=== PATIENT | female | born 1940 | race Caucasian/White ===

== ENCOUNTER 2023-09-17 16:02 | Observation (INO) ==
--- NOTE | 2023-09-17 16:47 | DR.DIZZY ---
HPI Time seen Time Seen by Provider: 09/17/23 16:41 PCP Primary Care Physician: Rafaela HPI Comment HPI Comment: was being evaluated for mini lumbar spine procedure when she was noted to have low blood pressure and weakness no c/o chest pain or sob has hx cad stents cva carotid stents she recenyly had echo which was reported as nl and had her lasix increased in the last several months and lost 30 + pounds Complaint Chief Complaint:: patient states she went to [facility] to be cleared for a back procedure, "Mild". She was found to be hypotensive with BP of 70/47. She decided to be evaluated at [facility]. Her only compaint of pain is chronic low back pain. She does complain of generalized weakness. COVID-19 Coronavirus risk:travel/contact w/high risk person: No Has patient experienced Coronavirus symptoms: No Source History Provided: Patient and Family Member Mode of Arrival Mode of Arrival: Wheelchair Timing Onset of Chief Complaint: 09/17/23 Context Stroke Symptoms: None PMH PMH Past Medical History: Yes Past Medical History: Coronary Artery Disease, CVA, Dyslipidemia, Hypertension and Renal Disease Past Surgical History: Yes Surgical History: Angioplasty/Stents, Appendectomy, Hysterectomy and Ortho Surgery Family History History of Family Medical Conditions: Yes Family Medical History: Coronary Artery Disease and Hypertension Social History Does patient currently use any type of tobacco product: No Have you used tobacco products in the last 12 months: No Type of Tobacco Use: None Does any household member use tobacco: No Alcohol Use: None Do you use any recreational Drugs:: No Lives With: Family Lives Where: Home Travel Risk Coronavirus risk:travel/contact w/high risk person: No Has patient experienced Coronavirus symptoms: No Infectious screening In the last 2 months have you had wt loss of >10#?: NO Have you had fever, night sweats or hemotysis?: No Have you traveled outside the country in the last 6 months?: No Isolation: Standard ROS Review of Systems All Other Systems: Reviewed and Negative PE Vital Signs Vitals: Vital Signs Temperature 97.7 F Pulse Rate 76 Pulse Rate 81 Pulse Rate 88 Pulse Rate 81 Pulse Rate 77 Pulse Rate 75 Pulse Rate 84 Pulse Rate 82 Pulse Rate 76 Pulse Rate 75 Pulse Rate 74 Pulse Rate 77 Pulse Rate 78 Respiratory Rate 14 Blood Pressure 136/63 Blood Pressure 134/64 Blood Pressure 116/56 Blood Pressure 116/56 Blood Pressure 104/58 Blood Pressure 108/60 Blood Pressure 116/58 Blood Pressure 112/56 Blood Pressure 107/59 Blood Pressure 118/56 O2 Sat by Pulse Oximetry 98 O2 Sat by Pulse Oximetry 97 O2 Sat by Pulse Oximetry 97 O2 Sat by Pulse Oximetry 96 O2 Sat by Pulse Oximetry 97 O2 Sat by Pulse Oximetry 97 O2 Sat by Pulse Oximetry 97 O2 Sat by Pulse Oximetry 98 O2 Sat by Pulse Oximetry 96 O2 Sat by Pulse Oximetry 99 O2 Sat by Pulse Oximetry 96 O2 Sat by Pulse Oximetry 97 O2 Sat by Pulse Oximetry 95 Head Head Exam: Normal Inspection Eyes Eye exam: Normal Appearance Neck Neck Exam: Normal Inspection Chest Chest Inspection: Normal Inspection Cardiovascular Cardiovascular Exam: Regular Rate Abdominal Exam Abdominal Exam: Normal Inspection and Normal Bowel Sounds Extremeties Extremities Exam: Normal Inspection and Full ROM Neurologic Cerebellar Function: Finger to Nose: Normal and Heel to Cm: Normal Skin Skin Exam: Warm and Dry COURSE Critical Care Notes Critical Diagnosis: bp 106/ sys ROR Labs Reviewed Laboratory Results Reviewed?: Yes 09/18/23 04:29 09/18/23 04:29 Laboratory: 09/17/23 17:46 Blood Blood Culture - Preliminary 09/17/23 17:40 Blood Blood Culture - Preliminary 09/17/23 18:14 Urine,Clean Catch Urine Culture - Final Escherichia Coli WBC 4.7 X10^3/uL (3.6-10.0) 09/17/23 16:40 RBC 3.21 X10^6/uL (3.5-5.4) L 09/17/23 16:40 Hgb 9.8 g/dL (12.0-16.0) L 09/17/23 16:40 Hct 29.6 % (36.0-47.0) L 09/17/23 16:40 MCV 92.1 fL (80.0-100.0) 09/17/23 16:40 MCH 30.6 pg (27.0-34.0) 09/17/23 16:40 MCHC 33.2 g/dL (33.0-35.0) 09/17/23 16:40 RDW 17.4 % (11.6-16.5) H 09/17/23 16:40 Plt Count 149 X10^3/uL (150.0-450.0) L 09/17/23 16:40 MPV 7.9 fL (7.4-11.0) 09/17/23 16:40 Neut % (Auto) 64.9 % (42.0-75.0) 09/17/23 16:40 Lymph % (Auto) 25.8 % (21.0-51.0) 09/17/23 16:40 [place] % (Auto) 8.1 % (0.0-13.0) 09/17/23 16:40 Eos % (Auto) 0.6 % (0.9-2.9) L 09/17/23 16:40 Baso % (Auto) 0.6 % (0.2-1.0) 09/17/23 16:40 Neut # (Auto) 3.0 x10^3/uL (2.2-4.8) 09/17/23 16:40 Lymph # (Auto) 1.2 X10^3/uL (1.3-2.9) L 09/17/23 16:40 [place] # (Auto) 0.4 x10^3/uL (0.3-0.8) 09/17/23 16:40 Eos # (Auto) 0.0 x10^3/uL (0.0-0.2) 09/17/23 16:40 Baso # (Auto) 0.0 X10^3/uL (0.0-0.1) 09/17/23 16:40 Absolute Nucleated RBC 0.1 /100WBC 09/17/23 16:40 D-Dimer 1.23 ug/ml (0.0-0.57) H 09/17/23 16:40 Sodium 141 mmol/L (136-145) 09/17/23 16:40 Corrected Sodium TNP 09/17/23 16:40 Potassium 3.7 mmol/L (3.5-5.1) 09/17/23 16:40 Chloride 101 mmol/L (98-107) 09/17/23 16:40 Carbon Dioxide 30.3 mmol/L (21-32) 09/17/23 16:40 BUN 75 mg/dL (7-18) H 09/17/23 16:40 Creatinine 2.51 mg/dL (0.55-1.02) H 09/17/23 16:40 Est GFR (MDRD) Af Amer 24 (>60) L 09/17/23 16:40 Est GFR (MDRD) Non-Af 20 (>60) L 09/17/23 16:40 Glucose 105 mg/dL (65-99) H 09/17/23 16:40 Calcium 6.7 mg/dL (8.5-10.1) L 09/17/23 16:40 Corrected Calcium 7.5 mg/dL (8.5-10.1) L 09/17/23 16:40 Total Bilirubin 0.50 mg/dL (0.2-1.0) 09/17/23 16:40 AST 21 Units/L (15-37) 09/17/23 16:40 ALT 13 Units/L (12-78) 09/17/23 16:40 Alkaline Phosphatase 71 Units/L (46-116) 09/17/23 16:40 Creatine Kinase 124 Units/L (26-192) 09/17/23 16:40 Troponin I High Sens 7.9 ng/L (4.0-60.0) 09/17/23 18:55 B-Natriuretic Peptide 87.5 pg/mL (0-79) H 09/17/23 16:40 Total Protein 7.5 g/dL (6.4-8.2) 09/17/23 16:40 Albumin 3.0 g/dL (3.4-5.0) L 09/17/23 16:40 Globulin 4.5 g/dL (2.5-4.5) 09/17/23 16:40 Albumin/Globulin Ratio 0.7 Ratio (1.1-2.1) L 09/17/23 16:40 Specimen Type Clean catch urine 09/17/23 18:14 Urine Color Yellow (YELLOW) 09/17/23 18:14 Urine Appearance Cloudy (CLEAR) 09/17/23 18:14 Urine pH 6.0 (5.0 - 8.0) 09/17/23 18:14 Ur Specific [place] 1.010 (1.000-1.030) 09/17/23 18:14 Urine Protein 2+ (NEGATIVE) 09/17/23 18:14 Urine Glucose (UA) Negative (NEGATIVE) 09/17/23 18:14 Urine Ketones Negative (NEGATIVE) 09/17/23 18:14 Urine Blood 3+ (NEGATIVE) 09/17/23 18:14 Urine Nitrite Negative (NEGATIVE) 09/17/23 18:14 Urine Bilirubin Negative (NEGATIVE) 09/17/23 18:14 Urine Urobilinogen Normal (NORMAL) 09/17/23 18:14 Ur Leukocyte Esterase 3+ (NEGATIVE) 09/17/23 18:14 Urine RBC 10-20 /HPF (0-3) A 09/17/23 18:14 Urine WBC Tntc /HPF (0-5) A 09/17/23 18:14 Ur Squamous Epith Cells Few /HPF (NEGATIVE) 09/17/23 18:14 Urine Bacteria 2+ /HPF (NEGATIVE) 09/17/23 18:14 Ur Culture Indicated? Yes/culture set up 09/17/23 18:14 SARS-CoV-2 (PCR) Negative (NEGATIVE) 09/17/23 16:39 Influenza Type A (PCR) Negative (NEGATIVE) 09/17/23 16:39 Influenza Type B (PCR) Negative (NEGATIVE) 09/17/23 16:39 RSV (PCR) Negative (NEGATIVE) 09/17/23 16:39 XRAY XRAY Interpreted by: Self X-ray Results: cardiomegaly cant ro lll infiltrate EKG Rate: 75 [place]: Normal (rbb ) Rhythm: NSR Opioid Opioid Risk Tool Age (Moises box if 16-45): No History of Preadolescent Sexual Abuse: No Total: 0 Total Score Risk Category: Low Risk Copyright: Donald STEPHENS predicting aberrant behaviors Discharge Plan Diagnosis Discharge Problem: General weakness, Exertional hypotension, Pneumonia, Acute UTI Discharge Plan Patient Disposition: 09 ADMITTED INPATIENT Condition: Stable Orders to Discharge Patient Discharge Orders: Discharge (Routine); Ordered 09/18/23 Ordered By: Catarino Cohen
[2023-09-17 16:54] LABS: BASOPHILS % (AUTO) 0.6 % (0.2-1.0); EOSINOPHILS % (AUTO) 0.6 % (0.9-2.9); HEMATOCRIT 29.6 % (36.0-47.0); HEMOGLOBIN 9.8 g/dL (12.0-16.0); LYMPHOCYTES # (AUTO) 1.2 X10^3/uL (1.3-2.9); LYMPHOCYTES % (AUTO) 25.8 % (21.0-51.0); MEAN CORPUSCULAR HEMOGLOBIN 30.6 pg (27.0-34.0); MEAN CORPUSCULAR HGB CONC 33.2 g/dL (33.0-35.0); MEAN CORPUSCULAR VOLUME 92.1 fL (80.0-100.0); MEAN PLATELET VOLUME 7.9 fL (7.4-11.0); MONOCYTES # (AUTO) 0.4 x10^3/uL (0.3-0.8); MONOCYTES % (AUTO) 8.1 % (0.0-13.0); NEUTROPHILS % (AUTO) 64.9 % (42.0-75.0); PLATELET COUNT 149 X10^3/uL (150.0-450.0); RED BLOOD COUNT 3.21 X10^6/uL (3.5-5.4); RED CELL DISTRIBUTION WIDTH 17.4 % (11.6-16.5); WHITE BLOOD COUNT 4.7 X10^3/uL (3.6-10.0)
--- NOTE | 2023-09-17 16:59 | EKG ---
Test Reason : weakness, hypotension Blood Pressure : */* mmHG Vent. Rate : 75 BPM Atrial Rate : 75 BPM P-R Int : 134 ms QRS Dur : 140 ms QT Int : 458 ms P-R-T Axes : 39 -45 9 degrees QTc Int : 511 ms Normal sinus rhythm Left axis deviation V paced Minimal voltage criteria for LVH, may be normal variant ( R in aVL ) Cannot rule out Anterior infarct , age undetermined Abnormal ECG No previous ECGs available Confirmed by Miguel Starkey MD ([id number]) on 09/18/2023 7:39:44 AM Referred By: Confirmed By: Miguel Starkey MD
[2023-09-17 17:05] LABS: ALANINE AMINOTRANSFERASE 13 Units/L (12-78); ALKALINE PHOSPHATASE 71 Units/L (46-116); ASPARTATE AMINO TRANSFERASE 21 Units/L (15-37); BLOOD UREA NITROGEN 75 mg/dL (7-18); CALCIUM 6.7 mg/dL (8.5-10.1); CARBON DIOXIDE 30.3 mmol/L (21-32); CHLORIDE 101 mmol/L (98-107); COR CA(FOR HYPOALB) 7.5 mg/dL (8.5-10.1); CREATININE 2.51 mg/dL (0.55-1.02); GLUCOSE 105 mg/dL (65-99); POTASSIUM 3.7 mmol/L (3.5-5.1); SODIUM 141 mmol/L (136-145); TOTAL PROTEIN 7.5 g/dL (6.4-8.2); eGFR NON BLACK RACES 20 (>60)
[2023-09-17] MEDS ORDERED: NS 1,000 ML IV 1,000 ML ONE (17:24)
[2023-09-17] MEDS: NS 1,000 ML IV 1,000 ML IV ONE (17:28)
[2023-09-17] MEDS: ROCEPHIN VIAL 1 GRAM IVP ONE (17:41)
[2023-09-17 18:22] LABS: BILIRUBIN,URINE NEGATIVE (NEGATIVE); BLOOD/HEMOGLOBIN,URINE 3+ (NEGATIVE); GLUCOSE, URINE NEGATIVE (NEGATIVE); KETONES,URINE NEGATIVE (NEGATIVE); LEUKOCYTE ESTERASE ,URINE 3+ (NEGATIVE); NITRITES,URINE NEGATIVE (NEGATIVE); PROTEIN,URINE 2+ (NEGATIVE); UROBILINOGEN,URINE NORMAL (NORMAL)
[2023-09-17 18:23] LABS: APPEARANCE,URINE CLOUDY (CLEAR); COLOR,URINE YELLOW (YELLOW)
[2023-09-17 18:40] LABS: BACTERIA,URINE 2+ /HPF (NEGATIVE); SQUAMOUS EPITHELIAL CELL,UR FEW /HPF (NEGATIVE)
[2023-09-17] MEDS ORDERED: NORCO 5/325 MG TAB PO PRN (20:07)
[2023-09-17] MEDS ORDERED: ZOFRAN TAB 4 MG SL PRN (20:07)
[2023-09-17] MEDS ORDERED: TYLENOL 325 MG TAB PO PRN (20:07)
[2023-09-17] MEDS: ROCEPHIN VIAL 1 GRAM 1 G in NS 100 ML IV 100 ML IV SCH (21:07)
[2023-09-17] MEDS ORDERED: NS 1/2 1,000 ML IV 1,000 ML IV ONE (21:28)
[2023-09-17] MEDS: ROBITUSSIN DM PO SCH (21:31)
[2023-09-17] MEDS ORDERED: DUONEB 0.5 MG/3 MG (3 mL) NEB ONE (22:10)
[2023-09-17] MEDS: DUONEB 0.5 MG/3 MG (3 mL) NEB SCH (22:22)
[2023-09-17] MEDS: NS 1/2 1,000 ML IV 1,000 ML IV SCH (22:36)
[2023-09-17 23:11] VITALS: BMI 24.7
--- NOTE | 2023-09-17 23:55 | RAD ---
EXAM: CHEST, 1 VIEW HISTORY: hypotensive with BP of 70/47. She decided to be evaluated at [facility]. Her only compaint of pain is chroni c low back pain. She does complain of generalized weakness.; COMPARISON: April 16, 2023 TECHNIQUE: Chest radiographic imaging, AP portable projection, 1 image FINDINGS: Moderate cardiomegaly. Pacemaker in place. No focal airspace disease. No pleural effusion. No pneumothorax. No acute osseous abnormality. IMPRESSION: No imaging findings of acute cardiopulmonary disease. THIS IS AN ELECTRONICALLY VERIFIED FINAL REPORT 09/17/2023 11:52 PM - Electronically signed by Juan Carlos Sigala MD
[2023-09-18 05:31] LABS: BASOPHILS % (AUTO) 0.3 % (0.2-1.0); EOSINOPHILS % (AUTO) 0.1 % (0.9-2.9); HEMATOCRIT 28.4 % (36.0-47.0); HEMOGLOBIN 9.3 g/dL (12.0-16.0); LYMPHOCYTES # (AUTO) 0.7 X10^3/uL (1.3-2.9); LYMPHOCYTES % (AUTO) 15.2 % (21.0-51.0); MEAN CORPUSCULAR HEMOGLOBIN 30.1 pg (27.0-34.0); MEAN CORPUSCULAR HGB CONC 32.5 g/dL (33.0-35.0); MEAN CORPUSCULAR VOLUME 92.5 fL (80.0-100.0); MEAN PLATELET VOLUME 8.9 fL (7.4-11.0); MONOCYTES # (AUTO) 0.5 x10^3/uL (0.3-0.8); MONOCYTES % (AUTO) 10.5 % (0.0-13.0); NEUTROPHILS # (AUTO) 3.5 x10^3/uL (2.2-4.8); NEUTROPHILS % (AUTO) 73.9 % (42.0-75.0); PLATELET COUNT 133 X10^3/uL (150.0-450.0); RED BLOOD COUNT 3.07 X10^6/uL (3.5-5.4); RED CELL DISTRIBUTION WIDTH 17.5 % (11.6-16.5); WHITE BLOOD COUNT 4.7 X10^3/uL (3.6-10.0)
[2023-09-18 05:46] LABS: ALANINE AMINOTRANSFERASE 10 Units/L (12-78); ALBUMIN 2.6 g/dL (3.4-5.0); ALKALINE PHOSPHATASE 64 Units/L (46-116); ASPARTATE AMINO TRANSFERASE 18 Units/L (15-37); BLOOD UREA NITROGEN 70 mg/dL (7-18); CALCIUM 6.4 mg/dL (8.5-10.1); CARBON DIOXIDE 27.1 mmol/L (21-32); CHLORIDE 106 mmol/L (98-107); COR CA(FOR HYPOALB) 7.5 mg/dL (8.5-10.1); CREATININE 1.87 mg/dL (0.55-1.02); GLUCOSE 89 mg/dL (65-99); POTASSIUM 3.5 mmol/L (3.5-5.1); SODIUM 144 mmol/L (136-145); TOTAL PROTEIN 6.8 g/dL (6.4-8.2); eGFR NON BLACK RACES 28 (>60)
[2023-09-18] MEDS ORDERED: CONSULT PHARMACY - POTASSIUM & MAGNESIUM XX SCH (07:00)
[2023-09-18] MEDS: DUONEB 0.5 MG/3 MG (3 mL) NEB SCH (08:12)
[2023-09-18 09:15] VITALS: BP 104/75; PULSE 86; RESP 29; TEMP 97.9; O2SAT 97
[2023-09-18] MEDS: MICRO K EXTEN CAP 10 MEQ PO SCH (09:37)
[2023-09-18] MEDS: MAG-OX TAB PO SCH (09:37)
--- NOTE | 2023-09-18 13:04 | DR.SSS ---
SHORT STAY SUMMARY Admission Date Date of Admission: 09/17/23 Discharge Date Discharge Date: 09/18/23 Admission Diagnoses Admission Diagnoses: 1. Hypotension 2. Dehydration 3. Chronic kidney disease stage IIIb 4. Hyperlipidemia 5. Bladder prolapse 6. History of hypertension 7. History of gout Discharge Diagnoses Discharge Diagnoses: 1. Hypotension resolved which was secondary to dehydration 2. Dehydration resolved 3. Chronic kidney disease stage IIIb 4. Hyperlipidemia 5. Bladder prolapse 6. History of hypertension stable 7. History of gout stable Chief Complaint Chief Complaint: Hypotension/presyncope History of Present Illness History of Present Illness: This is a pleasant 82-year-old white female who was seen yesterday by surg rn Dr. Dumont in [place], [place]. While we have seen her in the office for cardiac clearance for repair of her bladder prolapse she was found to be very hypotensive with a systolic blood pressure in the 70s and the diastolic blood pressure in the 50s. Because of this he recommended that the patient be sent to [facility] for admission. She went in through the [facility] emergency department and was found to be hypotensive along with dehydration. Workup revealed that she also had a urinary tract infection and she was started on IV Rocephin. We subsequently admitted her and started her on slow IV hydration overnight. Past Medical History Past Medical History: Coronary Artery Disease, CVA, Dyslipidemia, Hypertension and Renal Disease Past Surgical History Surgical History: Appendectomy and Hysterectomy Allergies Allergies Allergy/AdvReac Type Severity Reaction Status Date / Time benzoyl peroxide Allergy Verified 04/16/23 16:37 erythromycin base Allergy Verified 04/16/23 16:37 morphine Allergy Verified 04/16/23 16:37 Medications Home Medications: benzoyl peroxide Allergy (Verified 04/16/23 16:37) erythromycin base Allergy (Verified 04/16/23 16:37) morphine Allergy (Verified 04/16/23 16:37) CONTINUE taking the following medications carvedilol 25 mg tablet 12.5 mg PO BID 09/17/23 [History] tamsulosin 0.4 mg capsule 0.4 mg PO QDAY 09/17/23 [History] New Prescriptions amoxicillin 875 mg-potassium clavulanate 125 mg tablet 1 tab PO Q12H 10 days #20 tabs 09/18/23 [Rx] Family History Family Medical History: Cancer, IA and Hypertension Social History Does patient currently use any type of tobacco product: No Have you used tobacco products in the last 12 months: No Type of Tobacco Use: None Does any household member use tobacco: Yes Alcohol Use: Rarely Drug Use: None Review of Systems Constitutional: Weakness Eyes: No Symptoms Reported ENT: No Symptoms Reported Respiratory: No Symptoms Reported Cardiovascular: No Symptoms Reported Gastrointestinal: No Symptoms Reported Genitourinary: Frequency, Incontinence and Retention Musculoskeletal: No Symptoms Reported Skin: No Symptoms Reported Neurological: No Symptoms Reported Physical Exam Vital Signs: Last Vital Signs Temp 97.9 F 09/18/23 08:00 Pulse 86 09/18/23 08:00 Resp 29 H 09/18/23 08:00 BP 104/75 09/18/23 08:00 Pulse Ox 97 09/18/23 08:00 O2 Del Method Room Air 09/18/23 08:12 O2 Flow Rate 2 09/18/23 08:12 FiO2 28 09/18/23 08:12 Oriented: Normal, Time, Person and Place; negative Not Oriented Eyes: Normal Ear: Normal Nose: Normal Throat: Normal Respiratory: Clear Throughout Cardiovascular: Normal : Normal Auscultation: Bowel Sounds: Normal Palpation: Normal Tenderness: Normal Skin: Normal Musculoskeletal: Normal Psychiatric: Normal Mood Description: Calm Affect: Normal Speech Pattern: Clear and Appropriate Labs Labs: Laboratory Last Values WBC 4.7 X10^3/uL (3.6-10.0) 09/18/23 04: RBC 3.07 X10^6/uL (3.5-5.4) L 09/18/23 04:29 Hgb 9.3 g/dL (12.0-16.0) L 09/18/23 04:29 Hct 28.4 % (36.0-47.0) L 09/18/23 04:29 MCV 92.5 fL (80.0-100.0) 09/18/23 04: MCH 30.1 pg (27.0-34.0) 09/18/23 04: MCHC 32.5 g/dL (33.0-35.0) L 09/18/23 04:29 RDW 17.5 % (11.6-16.5) H 09/18/23 04:29 Plt Count 133 X10^3/uL (150.0-450.0) L 09/18/23 04:29 MPV 8.9 fL (7.4-11.0) 09/18/23 04: Neut % (Auto) 73.9 % (42.0-75.0) 09/18/23 04: Lymph % (Auto) 15.2 % (21.0-51.0) L 09/18/23 04: [place] % (Auto) 10.5 % (0.0-13.0) 09/18/23 04: Eos % (Auto) 0.1 % (0.9-2.9) L 09/18/23 04: Baso % (Auto) 0.3 % (0.2-1.0) 09/18/23 04: Neut # (Auto) 3.5 x10^3/uL (2.2-4.8) 09/18/23 04: Lymph # (Auto) 0.7 X10^3/uL (1.3-2.9) L 09/18/23 04: [place] # (Auto) 0.5 x10^3/uL (0.3-0.8) 09/18/23 04: Eos # (Auto) 0.0 x10^3/uL (0.0-0.2) 09/18/23 04: Baso # (Auto) 0.0 X10^3/uL (0.0-0.1) 09/18/23 04: Absolute Nucleated RBC 0.6 /100WBC 09/18/23 04: D-Dimer 1.23 ug/ml (0.0-0.57) H 09/17/23 16:40 Sodium 144 mmol/L (136-145) 09/18/23 04:29 Corrected Sodium TNP 09/18/23 04: Potassium 3.5 mmol/L (3.5-5.1) 09/18/23 04: Chloride 106 mmol/L (98-107) 09/18/23 04: Carbon Dioxide 27.1 mmol/L (21-32) 09/18/23 04:29 BUN 70 mg/dL (7-18) H 09/18/23 04:29 Creatinine 1.87 mg/dL (0.55-1.02) H 09/18/23 04:29 Est GFR (MDRD) Af Amer 33 (>60) L 09/18/23 04:29 Est GFR (MDRD) Non-Af 28 (>60) L 09/18/23 04:29 Glucose 89 mg/dL (65-99) 09/18/23 04:29 Calcium 6.4 mg/dL (8.5-10.1) L 09/18/23 04:29 Corrected Calcium 7.5 mg/dL (8.5-10.1) L 09/18/23 04:29 Magnesium 0.6 mg/dL (2.0-2.9) L 09/18/23 04:29 Total Bilirubin 0.30 mg/dL (0.2-1.0) 09/18/23 04:29 AST 18 Units/L (15-37) 09/18/23 04:29 ALT 10 Units/L (12-78) L 09/18/23 04:29 Alkaline Phosphatase 64 Units/L (46-116) 09/18/23 04:29 Creatine Kinase 124 Units/L (26-192) 09/17/23 16:40 Troponin I High Sens 7.9 ng/L (4.0-60.0) 09/17/23 18:55 B-Natriuretic Peptide 87.5 pg/mL (0-79) H 09/17/23 16:40 Total Protein 6.8 g/dL (6.4-8.2) 09/18/23 04:29 Albumin 2.6 g/dL (3.4-5.0) L 09/18/23 04:29 Globulin 4.2 g/dL (2.5-4.5) 09/18/23 04:29 Albumin/Globulin Ratio 0.6 Ratio (1.1-2.1) L 09/18/23 04:29 Specimen Type Clean catch urine 09/17/23 18:14 Urine Color Yellow (YELLOW) 09/17/23 18:14 Urine Appearance Cloudy (CLEAR) 09/17/23 18:14 Urine pH 6.0 (5.0 - 8.0) 09/17/23 18:14 Ur Specific [place] 1.010 (1.000-1.030) 09/17/23 18:14 Urine Protein 2+ (NEGATIVE) 09/17/23 18:14 Urine Glucose (UA) Negative (NEGATIVE) 09/17/23 18:14 Urine Ketones Negative (NEGATIVE) 09/17/23 18:14 Urine Blood 3+ (NEGATIVE) 09/17/23 18:14 Urine Nitrite Negative (NEGATIVE) 09/17/23 18:14 Urine Bilirubin Negative (NEGATIVE) 09/17/23 18:14 Urine Urobilinogen Normal (NORMAL) 09/17/23 18:14 Ur Leukocyte Esterase 3+ (NEGATIVE) 09/17/23 18:14 Urine RBC 10-20 /HPF (0-3) A 09/17/23 18:14 Urine WBC Tntc /HPF (0-5) A 09/17/23 18:14 Ur Squamous Epith Cells Few /HPF (NEGATIVE) 09/17/23 18:14 Urine Bacteria 2+ /HPF (NEGATIVE) 09/17/23 18:14 Ur Culture Indicated? Yes/culture set up 09/17/23 18:14 SARS-CoV-2 (PCR) Negative (NEGATIVE) 09/17/23 16:39 Influenza Type A (PCR) Negative (NEGATIVE) 09/17/23 16:39 Influenza Type B (PCR) Negative (NEGATIVE) 09/17/23 16:39 RSV (PCR) Negative (NEGATIVE) 09/17/23 16:39 Assessment/Plan (1) Acute UTI: 1: IV Rocephin (2) General weakness: 1: IV hydration. Recheck CBC and CMP in the morning (3) Exertional hypotension: 1: Slow IV hydration. (4) Dehydration: 1: Rehydration. (5) Chronic kidney disease, stage 3b: 1: Monitor for improvement. Hospital Course Hospital Course: After admission the patient did fine and did not have any significant complaints or problems. This morning she is alert and awake and reports she feels much better. She says she feels a little back to her normal baseline self. Her blood pressure is normalized and her creatinine has improved since admission. Reviewing her normal creatinine levels she is better than normal and is looking at her estimated GFR looks like she has chronic kidney disease stage IIIb. Since her hypertension and dizziness has resolved we will go ahead and plan on discharging her home today. Patient will be discharged home in stable condition and we will have her take Augmentin 875 mg 1 p.o. twice daily for [address] Dumont stopped her spironolactone and another medication but she did not recall the name of it at this time. She will be following up with her primary care provider Dr. Hernesto Tyson in [place], [place]. Discharge Medications Discharge Medications: Home Medication List carvedilol 25 mg tablet 12.5 mg PO BID 09/17/23 [History] tamsulosin 0.4 mg capsule 0.4 mg PO QDAY 09/17/23 [History] amoxicillin 875 mg-potassium clavulanate 125 mg tablet 1 tab PO Q12H 10 days #20 tabs 09/18/23 [Rx] Prescriptions: amoxicillin-pot clavulanate Catarino Cohen Discharge Plan Discharge Plan Hospital Course: spoke with Dr Reyes at 6.30 regarding hypotension ,pneumonia and dehydration and he agreed to put on for observation Patient Disposition: HOME, SELF-CARE Condition: Stable Health Concerns: Post Hospitalization: new medications and changes needed to prevent readmission or further decline. Pt educated and given instructions on all concerns. Care Plan Goals: Problem: Infection Goal: Temperature within normal limits. Resolved infection. Instructions: Follow provided instructions. Follow up with primary physician as directed. Contact primary care physician or report to the closest Emergency Room if condition worsens. Plan of Treatment: Continue with present treatment and follow up plan. Pt is to keep follow up appointment as instructed and take medications as ordered. Prescriptions: New amoxicillin-pot clavulanate 875-125 mg Tablet 1 tab PO Q12H 10 Days Qty: 20 0RF Continued furosemide 40 mg tablet 40 mg PO TID hydrocodone-acetaminophen 5-325 mg tablet 1 tab PO Q4-6H PRN (Reason: pain) clopidogrel 75 mg tablet 75 mg PO QDAY simvastatin 40 mg tablet 40 mg PO QDAY omeprazole 20 mg capsule,delayed release(DR/EC) 20 mg PO QDAY allopurinol 300 mg tablet 300 mg PO QDAY carvedilol 25 mg tablet 12.5 mg PO BID Rx Instructions: hold if systolic pressure less than 100 tamsulosin 0.4 mg capsule 0.4 mg PO QDAY Orders to Discharge Patient Discharge Orders: Discharge (Routine); Ordered 09/18/23 Ordered By: Catarino Cohen Follow ups/Referrals Follow ups/Referrals: HERNESTO TYSON [REFERRING] - 09/25/23 9:45 am JAMIL WHITESIDE [Primary Care Provider] - (Follow up as needed.) Instructions Instructions: Antibiotic Medicine, Adult, [id number], Hypotension, [id number], Urinary Tract Infection, Adult, [id number] Stand Alone Forms: Post Hospital Follow Up Care
== END 2023-09-18 11:35 | disposition home or self-care (01) ==
LOC: ER 16:02 → ICU 16:02
PROVIDERS: ADMIT Family Medicine; ATTEND Family Medicine
DX: R53.1 Weakness; Z20.822 Contact with and (suspected) exposure to COVID-19; R79.1 Abnormal coagulation profile; B96.29 Other Escherichia coli [E. coli] as the cause of diseases classified elsewhere; N18.32 Chronic kidney disease, stage 3b; E78.5 Hyperlipidemia, unspecified; R94.31 Abnormal electrocardiogram [ECG] [EKG]; I95.89 Other hypotension; I12.9 Hypertensive chronic kidney disease with stage 1 through stage 4 chronic kidney disease, or unspecified chronic kidney disease; I25.10 Atherosclerotic heart disease of native coronary artery without angina pectoris; Z86.73 Personal history of transient ischemic attack (TIA), and cerebral infarction without residual deficits; B96.1 Klebsiella pneumoniae [K. pneumoniae] as the cause of diseases classified elsewhere; E86.0 Dehydration; R55 Syncope and collapse; N39.0 Urinary tract infection, site not specified; E83.42 Hypomagnesemia; N81.10 Cystocele, unspecified; M54.59 Other low back pain; Z66 Do not resuscitate